=== PATIENT | female | born 1950 | race Caucasian/White ===

== ENCOUNTER → 2016-12-02 | Outpatient (CLI) | payer OTHER ==
[~2016-12-02] VITALS: Ht 167.6 cm; Wt 68.8 kg
[~2016-12-02] MED LIST: BACLOFEN PO; BUTRANS1 EAC2 TD; BUTRANS1 EAC3 TD; BUTRANS1 EACH TD; CELEBREX 200 M200 MG PO; CLONAZEPAM 0.50.5 M1 PO; CYMBALTA20 MG PO; CYMBALTA30 MG PO; CYMBALTA60 MG PO; DESYREL50 MG PO; ESTRADIOL-NORE1 EAC1 PO; FENTANYL PA12 MCG/HR TD; MENEST PO; MOBIC15 MG PO; MS CONTIN15 MG PO; NAPROSYN500 MG PO; NEURONTIN 300300 M1 PO; NEURONTIN600 MG PO; OXYTROL3.9 MG/PAT TRANSDERM; PROVERA2.5 MG PO; TRAMADOL 50 MG50 MG PO; ZANAFLEX4 M1 PO; [UNRECOGNIZED DRUG - OTHER]
--- NOTE | ~2016-12-02 | HPC ---
[facility] [place] [address] PAIN MANAGEMENT CONSULTATION Name: MORGAN OLIVER Room #: REG [facility] M..#: [id number] Admission: 12/02/16 Attend Phys: Jason Mix DO Discharge: Date of : 48 Report #: [id number] THIS REPORT FOR: //name// CC: Flakita Mix The patient is a 66-year-old female typically treated for myofascial pain requiring complex medication management. Last seen in the pain clinic 05/12/2016. At that time, continued the patient on Cymbalta through her general assembler physician and I had continued her on tramadol 50 mg 2-3 times a day, baclofen one-half to one tablet 3 times a day and gabapentin 600 mg 2 tablets 3 times a day along with Meloxicam 15 mg 1 a day. The patient returns to pain clinic today. Noting pain is primarily in the right hip and leg, now however, is a little different radiating down into the foot. She notes chronic bilateral hip pain, is helped with current medication, rates the pain at 5 on a 0-10 visual analog scale, pain is exacerbated with walking and exercise. She has stopped working due to hip pain. 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 PHYSICAL EXAMINATION: Shows 66-year-old female, BMI is 24.5 kilograms per meter squared. Blood pressure 142/79, pulse 67, respirations 16. Alert and oriented to person, place and time, judged to be a reasonable historian. Rises from chair using armrest, modestly antalgic gait. Patellar reflex is diminished on the right 1/4, 2/4 on the left, moderately positive straight leg raise on the right at 30 degrees. Right hip flexion and lower extremity extension strength is diminished about 4/5 versus 5/5. Diffuse axial back pain. No discrete trigger points are noted. We reviewed the fact that opiate medications are being used to provide analgesia adequate to support activities of daily living, not attempting to achieve a specific pain score on the 0-10 Visual Analog Scale. The current opiate medications are providing sufficient analgesia to allow the patient to participate in activities of daily living. The patient is not exhibiting any aberrant behavior suggestive of drug diversion. The patient is not having any adverse reactions to medications. The patient is not suffering from daytime somnolence or mental acuity changes. The patient is managing opiate-induced constipation with appropriate nmyr-dmt-pjnuusq agents and dietary considerations. The patient was counseled on concern for caution with operating a motor vehicle while using opiate medications. A physical exam was performed and the patient's functional status was evaluated. All patients with back pain were advised against the bed rest greater than 4 days and were advised to return to normal activities. Pain score assessment was noted and the treatment plan was reviewed with the patient. All current medications, both prescribed and OTC were reviewed and reconciled on the electronic medical record. Tobacco screening was accomplished and smoking [address] [address] PAIN MANAGEMENT CONSULTATION Name: MORGAN OLIVER Room #: REG [facility]EN Cho#: [id number] Admission: 12/02/16 Attend Phys: Jason Mix DO Discharge: Date of : 48 Report #: [id number] cessation was advised when indicated. BMI was noted and diet/exercise modification was recommended for all patients following outside normal parameters. I reviewed with the patient today their responsibilities to safeguard prescription medications, reviewed their responsibility to utilize medications only as prescribed by the physician. They are to seek and receive pain medications only from 1 physician group ( [facility]). They are to use 1 pharmacy and keep the clinic informed if they change pharmacies. Their responsibilities include making followup visits in a timely fashion and to avoid abrupt discontinuation of medication usage. Their responsibilities further include bringing their medications (bottles from the pharmacy with residual pills) to the visit for possible confirmation of pill counts and the patient understands it is their responsibility to submit to random drug screens to ensure both that the medications prescribed are present, and that no other controlled substances are present. All prescriptions provided today were generated electronically. ASSESSMENT: 1. Myofascial pain requiring complex medication management, stable on baseline medications including Meloxicam 15 mg daily, gabapentin 600 mg 2 tablets 3 times a day, baclofen 10 mg half to one tablet 3 times a day and tramadol 50 mg 1 tablet 2-3 times a day, we will increase to 3 or 4 times a day, limit 100 tablets for 30 days. 2. Acute exacerbation of lumbar radicular symptoms with right radicular pain, positive neural tensioning having failed conservative therapy including nonsteroidal anti-inflammatory medications and range of motion and stretching, physical therapy. RECOMMENDATION: We will seek authorization for lumbar epidural injection at L4-L5 at next visit. <ELECTRONICALLY SIGNED> By: Jason Mix DO 12/05/16 0917 1511 1920 Jason Mix DO /nt
[2016-12-02 11:12] VITALS: BP 142/79
== END ==
LOC: PAIN 07:05
DX: M79.1 Myalgia (principal); F17.210 Nicotine dependence, cigarettes, uncomplicated

== ENCOUNTER → 2017-04-03 | Outpatient (CLI) | payer OTHER ==
[~2017-04-03] VITALS: Ht 167.6 cm; Wt 70.2 kg
--- NOTE | ~2017-04-03 | HPC ---
[facility] [place] [address] PAIN MANAGEMENT CONSULTATION Name: MORGAN OLIVER Room #: REG Chava Cho#: [id number] Admission: 04/03/17 Attend Phys: Jason Mix DO Discharge: Date of : 48 Report #: [id number] THIS REPORT FOR: //name// CC: Flakita Mix HISTORY OF PRESENT ILLNESS: The patient is a 66-year-old female last seen in the pain clinic in November of this year, treated for myofascial pain requiring complex medication management; has a component of axial back pain. The patient was continued on her baseline medication including baclofen 10 mg half in the morning, half at noon, 1 at night; gabapentin 600 mg 2 tablets t.i.d.; tramadol 50 mg for breakthrough pain; Naprosyn 500 mg b.i.d. The patient returns to pain clinic today noting medications provide sufficient analgesia to participate in activities of daily living. Pain is primarily back radiating in the right leg. She rates it 9-10 on a bad day, though she states she does everything she "needs to do." She simply limits her activity in which she "wants" to do given that working through the activities of the day with chronic pain sometimes somewhat wears her out. PHYSICAL EXAMINATION: Shows 66-year-old female, BMI is 25 kilograms per meter squared. Vital signs stable as noted in the EMR. Rises from chair easily. Gait is tandem. Diffuse tenderness across the low back. Right leg shows slight decreased hip flexion strength, though otherwise strength is generally symmetric. We reviewed the fact that opiate medications are being used to provide analgesia adequate to support activities of daily living, not attempting to achieve a specific pain score on the 0-10 Visual Analog Scale. The current opiate medications are providing sufficient analgesia to allow the patient to participate in activities of daily living. The patient is not exhibiting any aberrant behavior suggestive of drug diversion. The patient is not having any adverse reactions to medications. The patient is not suffering from daytime somnolence or mental acuity changes. The patient is managing opiate-induced constipation with appropriate abvu-czc-pilnngc agents and dietary considerations. The patient was counseled on concern for caution with operating a motor vehicle while using opiate medications. A physical exam was performed and the patient's functional status was evaluated. All patients with back pain were advised against the bed rest greater than 4 days and were advised to return to normal activities. Pain score assessment was noted and the treatment plan was reviewed with the patient. All current medications, both prescribed and OTC were reviewed and reconciled on the electronic medical record. Tobacco screening was accomplished and smoking cessation was advised when indicated. BMI was noted and diet/exercise modification was recommended for all patients following outside normal parameters. [address] [address] PAIN MANAGEMENT CONSULTATION Name: MORGAN OLIVER Viviana Room #: REG [facility] Marquis#: [id number] Admission: 04/03/17 Attend Phys: Jason Mix DO Discharge: Date of : 46 Report #: [id number] I reviewed with the patient today their responsibilities to safeguard prescription medications, reviewed their responsibility to utilize medications only as prescribed by the physician. They are to seek and receive pain medications only from 1 physician group ( [facility]). They are to use 1 pharmacy and keep the clinic informed if they change pharmacies. Their responsibilities include making followup visits in a timely fashion and to avoid abrupt discontinuation of medication usage. Their responsibilities further include bringing their medications (bottles from the pharmacy with residual pills) to the visit for possible confirmation of pill counts and the patient understands it is their responsibility to submit to random drug screens to ensure both that the medications prescribed are present, and that no other controlled substances are present. All prescriptions provided today were generated electronically. ASSESSMENT: Myofascial pain requiring complex medication management and axial back pain. RECOMMENDATIONS: Renew baseline medications unchanged, gabapentin 600 mg 2 tablets t.i.d.; baclofen 10 mg half a tablet in the morning, half at noon and 1 at night and Naprosyn 500 mg b.i.d. No problems with GI issues, renal issue or cardiac issues. Continue tramadol 50 mg p.r.n. breakthrough pain, 100 tablets for 30 days. Follow up in 3 months for reevaluation. <ELECTRONICALLY SIGNED> By: Jason Mix DO 04/05/17 0758 1611 2310 Jason Mix DO /nt
[2017-04-03 13:46] VITALS: BP 119/72
== END | disposition home or self-care (01) ==
LOC: PAIN 06:53
DX: M54.16 Radiculopathy, lumbar region (principal); M79.1 Myalgia; F17.200 Nicotine dependence, unspecified, uncomplicated

== ENCOUNTER → 2017-09-07 | Outpatient (CLI) | payer OTHER ==
[~2017-09-07] VITALS: Ht 167.6 cm; Wt 69.1 kg
--- NOTE | ~2017-09-07 | HPC ---
[facility] [address] [address] [place] [address] PAIN MANAGEMENT CONSULTATION Name: MORGAN OLIVER [id number] Admission: 09/07/17 Attend Phys: Jason Mix DO Discharge: Date of : 46 Report #: [id number] THIS REPORT FOR: //name// CC: Flakita Mix DATE OF SERVICE: 09/08/2017 DATE OF SERVICE: 09/08/2017 HISTORY OF PRESENT ILLNESS: The patient is a 67-year-old female, long noted in the pain clinic, being treated for myofascial pain requiring high risk complex medication management. She was continued on baclofen 10 mg half in the morning, half at noon, 1 at night, gabapentin 600 mg 2 tablets 3 times a day, tramadol for breakthrough pain and Naprosyn 500 mg b.i.d. She returns to pain clinic today with complaints of pain increasing across the back. She is wearing a back brace that she got through Medicare. She recently moved from an apartment to a house. With increasing activity, pain has been problematic primarily across the belt line. She rates the pain as "12" on a 0-10 VAS. PHYSICAL EXAMINATION: Shows 67-year-old female, BMI is 24.6 kilograms per meter squared. Vital signs stable as noted in the EMR. She continues to smoke and was counseled regarding same. Rises from chair using armrest. Gait is tandem. Diffuse tenderness across the low back. No discrete trigger points are noted. We reviewed the fact that opiate medications are being used to provide analgesia adequate to support activities of daily living, not attempting to achieve a specific pain score on the 0-10 Visual Analog Scale. The current opiate medications are providing sufficient analgesia to allow the patient to participate in activities of daily living. The patient is not exhibiting any aberrant behavior suggestive of drug diversion. The patient is not having any adverse reactions to medications. The patient is not suffering from daytime somnolence or mental acuity changes. The patient is managing opiate-induced constipation with appropriate jtzb-izp-bmtkgkl agents and dietary considerations. The patient was counseled on concern for caution with operating a motor vehicle while using opiate medications. A physical exam was performed and the patient's functional status was evaluated. All patients with back pain were advised against the bed rest greater than 4 days and were advised to return to normal activities. Pain score assessment was noted and the treatment plan was reviewed with the patient. All current medications, both prescribed and OTC were reviewed and reconciled on the electronic medical record. Tobacco screening was accomplished and smoking cessation was advised when indicated. BMI was noted and diet/exercise [address] [address] PAIN MANAGEMENT CONSULTATION Name: MORGAN OLIVER Viviana Room #: REG [facility] Marquis#: [id number] Admission: 09/07/17 Attend Phys: Jason Mix DO Discharge: Date of : 46 Report #: [id number] modification was recommended for all patients following outside normal parameters. I reviewed with the patient today their responsibilities to safeguard prescription medications, reviewed their responsibility to utilize medications only as prescribed by the physician. They are to seek and receive pain medications only from 1 physician group ([facility]). They are to use 1 pharmacy and keep the clinic informed if they change pharmacies. Their responsibilities include making followup visits in a timely fashion and to avoid abrupt discontinuation of medication usage. Their responsibilities further include bringing their medications (bottles from the pharmacy with residual pills) to the visit for possible confirmation of pill counts and the patient understands it is their responsibility to submit to random drug screens to ensure both that the medications prescribed are present, and that no other controlled substances are present. All prescriptions provided today were generated electronically. ASSESSMENT: Myofascial pain requiring high risk complex medication management. RECOMMENDATIONS: 1. Smoking cessation. 2. Continue range of motion core therapy. We talked about problems of wearing the Velcro abdominal binder belt. While it does feel good to wear, it may promote weakening of the core muscles. We strongly recommend core stabilization exercises. Suggested, if she is going to wear the abdominal binder, she wear it only for short periods of time, perhaps when doing more aggressive lifting. Otherwise, continue current medication including gabapentin 600 mg 2 tablets 3 times a day, baclofen 10 mg half in the morning, half at noon, 1 at night. She does not require these prescriptions. We did renew tramadol 50 mg 1 tablet up to 4 times a day, #120 tablets with 3 refills. Naproxen sodium 500 mg b.i.d. Discharged in good and stable condition. Follow up in 3 months or earlier if needed. <ELECTRONICALLY SIGNED> By: Jason Mix DO 09/08/17 0926 9 0804 Jason Mix DO /nt
[2017-09-07 14:27] VITALS: BP 143/83
== END | disposition home or self-care (01) ==
LOC: PAIN 07-27 07:08
DX: E11.42 Type 2 diabetes mellitus with diabetic polyneuropathy (principal); G89.29 Other chronic pain; F41.9 Anxiety disorder, unspecified; Z79.4 Long term (current) use of insulin; E66.01 Morbid (severe) obesity due to excess calories; I10 Essential (primary) hypertension; K21.9 Gastro-esophageal reflux disease without esophagitis; Z98.890 Other specified postprocedural states; F17.210 Nicotine dependence, cigarettes, uncomplicated

== ENCOUNTER → 2018-01-25 | Outpatient (CLI) | payer OTHER ==
[~2018-01-25] VITALS: Ht 167.6 cm; Wt 68.9 kg
[~2018-01-25] MED LIST changes: +NORFLEX100 MG PO; +WELLBUTRIN XL300 MG PO
--- NOTE | ~2018-01-25 | HPC ---
[facility] [address] PAIN MANAGEMENT CONSULTATION Name: MORGAN OLIVER Room #: REG [facility] Cho#: [id number] Admission: 01/25/18 Attend Phys: Jason Mix DO Discharge: Date of : 46 Report #: [id number] THIS REPORT FOR: //name// CC: Flakita Mix The patient is a 67-year-old female typically treated for myofascial pain requiring complex medication management. She had been relatively stable on gabapentin 600 mg 2 tablets 3 times a day, tramadol 1 tablet 4 times a day, though she is typically averaging about 3.2 tablets, her prescription for 120 tablets with 3 refills has lasted approximately 5 months. The patient returns to pain clinic today noting that her pain became quite problematic. She was seen in the ER, 10/15/2017 for acute back spasm radiating into the breast. It was determined to be noncardiac chest pain. She was started on some Norflex at that time. She returns to pain clinic today. She notes pain is 7-8 on VAS. Pain is per the patient, "all over." She complains of pain in her neck, back, arms, shoulders, hips and legs. States that she sought animal care supervisor with no help. She states that the acute pain for which she was seen in the ER, 10/15/2017 did resolve somewhat over a week. States her current chronic pain remains problematic with activity. 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 She states she is unable to work secondary to pain. Physical exam shows 67-year-old female appearing somewhat younger than stated age. BMI is 24.5 kilograms per meter squared. Blood pressure is 139/65, pulse is 70, respirations are 20. Subjective pain score 7-8 on VAS. Cranial nerves 2-12 are grossly intact. Pupils are equal, react to light and accommodation. Extraocular muscles are intact. She rises from the chair with minimal use of the armrest. Upper extremity strength is symmetric. Range of motion is good. Diffuse tenderness throughout trapezius, latissimus dorsi, thoracic, lumbar paravertebral muscles. Lumbar flexion; however, is good to 90+ degrees. Lower extremity strength is symmetric. Straight leg raising negative. ASSESSMENT: Chronic axial back pain, myofascial pain requiring complex medication management. RECOMMENDATIONS: Continue Cymbalta 90 mg a.m., gabapentin 600 mg 2 tablets t.i.d., baclofen 10 mg t.i.d. for spasm, Naprosyn 500 mg b.i.d. and tramadol 50 mg 1 tablet 3-4 times a day, limit 100 tablets with 4 refills. We reviewed the fact that opiate medications are being used to provide analgesia adequate to support activities of daily living, not attempting to achieve a [address] [address] PAIN MANAGEMENT CONSULTATION Name: MORGAN OLIVER Room #: REG [facility].#: [id number] Admission: 01/25/18 Attend Phys: Jason Mix DO Discharge: Date of : 46 Report #: [id number] specific pain score on the 0-10 Visual Analog Scale. The current opiate medications are providing sufficient analgesia to allow the patient to participate in activities of daily living. The patient is not exhibiting any aberrant behavior suggestive of drug diversion. The patient is not having any adverse reactions to medications. The patient is not suffering from daytime somnolence or mental acuity changes. The patient is managing opiate-induced constipation with appropriate nxup-rgg-kyljzfg agents and dietary considerations. The patient was counseled on concern for caution with operating a motor vehicle while using opiate medications. A physical exam was performed and the patient's functional status was evaluated. All patients with back pain were advised against the bed rest greater than 4 days and were advised to return to normal activities. Pain score assessment was noted and the treatment plan was reviewed with the patient. All current medications, both prescribed and OTC were reviewed and reconciled on the electronic medical record. Tobacco screening was accomplished and smoking cessation was advised when indicated. BMI was noted and diet/exercise modification was recommended for all patients following outside normal parameters. I reviewed with the patient today their responsibilities to safeguard prescription medications, reviewed their responsibility to utilize medications only as prescribed by the physician. They are to seek and receive pain medications only from 1 physician group ( [facility]). They are to use 1 pharmacy and keep the clinic informed if they change pharmacies. Their responsibilities include making followup visits in a timely fashion and to avoid abrupt discontinuation of medication usage. Their responsibilities further include bringing their medications (bottles from the pharmacy with residual pills) to the visit for possible confirmation of pill counts and the patient understands it is their responsibility to submit to random drug screens to ensure both that the medications prescribed are present, and that no other controlled substances are present. All prescriptions provided today were generated electronically. We did review opiate risk assessment tool today, she scores high at 8. Functional assessment tool score shows impact at 46/70. We counseled the patient regarding nicotine use and its association with axial back pain. <ELECTRONICALLY SIGNED> By: Jason Mix DO 01/26/18 0704 [id number] 1838 Jason Mix DO /nt
[2018-01-25 13:28] VITALS: BP 139/65
== END ==
LOC: PAIN 06:55
DX: M79.1 Myalgia (principal); M54.9 Dorsalgia, unspecified; Z79.899 Other long term (current) drug therapy

== ENCOUNTER → 2018-07-11 | Outpatient (CLI) | payer OTHER ==
[~2018-07-11] VITALS: Ht 167.6 cm; Wt 70.4 kg
--- NOTE | ~2018-07-11 | HPC ---
[facility] [address] [address] PAIN MANAGEMENT CONSULTATION Name: MORGAN OLIVER Room #: REG EREN Marquis#: [id number] Admission: 07/11/18 Attend Phys: Phil Hollins MD Discharge: Date of : 46 Report #: [id number] THIS REPORT FOR: //name// CC: Flakita Hollins DATE OF SERVICE: 07/11/2018 CHIEF COMPLAINT: Pain radiating down into my left arm. HISTORY OF PRESENT ILLNESS: The patient is a 67-year-old female who has been seen in the Pain Clinic by Dr. Jason Mix. The patient has returned today with complaint of pain and discomfort involving her left arm. She has pain radiating down her shoulder into the left arm with numbness and tingling. She has a history of lumbar radicular pain. She has had some problems with her shoulders and neck in the past. She notes that her pain in the left arm is more problematic. It is exacerbated by turning her head. She notes that the pain worsens when she over use it. Working in the yard causes worsening of her pain and discomfort. Use of medications and heat have been sometimes helpful. She has returned today for a cervical epidural steroid injection. Her MRI showed a broad-based disk osteophyte bulge eccentric to the left with slight flattening of the left ventral cord surface. There was severe bilateral foraminal stenosis at this level. The patient would like to proceed with a cervical epidural steroid injection. She has had lumbar epidural steroid injections in the past without problems. ALLERGIES: IV IODINE. CURRENT MEDICATIONS: Gabapentin 600 mg 2 tablets p.o. t.i.d., tramadol 50 mg t.i.d./q.i.d., baclofen 10 mg t.i.d., Naprosyn 500 mg b.i.d., Cymbalta 30 mg, estradiol, trazodone 50 mg at bedtime, Proventil 2.5 mg, clonazepam 0.15 mg at bedtime. PAIN CLINIC ASSESSMENT: 1. The patient has osteoarthritic changes in her hip. She has some pain and discomfort in her left arm. 2. Height 5 feet 6 inches, weight 155 pounds, BMI is 25. 3. Vital Signs: Blood pressure 134/74, pulse 67, respiratory rate 16, room air saturation 100%. 4. Pain intensity 10. 5. Fall risk. The patient has not fallen in the last 3 weeks, but does exhibit some feeling of dizziness. 6. Blood thinner. The patient is not on a blood thinning medication. 7. History of hypertension. The patient has not been treated for hypertension. 8. Opioids. The patient is treated with tramadol. 9. Risk assessment tool, high risk greater than [address]. [place] [address] PAIN MANAGEMENT CONSULTATION Name: MORGAN OLIVER Room #: REG EREN Marquis#: [id number] Admission: 07/11/18 Attend Phys: Phil Hollins MD Discharge: Date of : 46 Report #: [id number] 10. Functional assessment tool 46/70. 11. Recreational drug use. The patient denies use of recreational drugs. 12. Tobacco: The patient is a current tobacco user. 13. Alcohol: The patient does admit to use of alcoholic beverages on occasion. PHYSICAL EXAMINATION: GENERAL: The patient is a well-developed, well-nourished white female. Appears her stated age. She is alert and oriented x 3. Her affect is appropriate. HEENT: Normocephalic, atraumatic. Extraocular eye muscles intact. Sclerae nonicteric. Mucous membranes are moist. NECK: With good range of motion. The patient has pain and discomfort which is radiating down the left shoulder involving the left arm. HEART: Regular rate. S1, S2. LUNGS: Clear to auscultation. MUSCULOSKELETAL: Without significant scoliosis, kyphosis or lordosis. Lower extremity muscle strength judged to be 5/5 for the major muscle groups in the lower extremity. IMPRESSION: 1. Cervical radiculopathy today with pain radiating down into the left arm. 2. Emotional problems. 3. Joint disease/arthritis. RECOMMENDATIONS: We discussed treatment options with the patient. They include cervical epidural steroid injection. Risks and benefits of the procedure, which could include infection, increased muscle soreness, headache, bleeding, worsening of pain, no improvement in pain, paralysis were reviewed. The patient elects to proceed. PROCEDURE NOTE: The patient was placed in the prone position. Fluoroscopy was used to identify the C7-T1 interspace. This area had been sterilely prepped with Betadine and infiltrated with 0.25% bupivacaine. A 17-gauge Tuohy using a left paramedian approach was instituted. A total of 120 mg of triamcinolone was injected. The patient tolerated the procedure well. There were no complications. She remained in the Pain Clinic for an appropriate amount of time. She will follow up in the future as needed. We would like to thank you for letting us participate in her care. We hope she continues to improve. By: [id number] Phil Hollins MD /nt
[2018-07-11 12:47] VITALS: BP 134/74
== END | disposition home or self-care (01) ==
LOC: PAIN 07:55
DX: M54.12 Radiculopathy, cervical region (principal); G89.29 Other chronic pain; M19.90 Unspecified osteoarthritis, unspecified site; F98.9 Unspecified behavioral and emotional disorders with onset usually occurring in childhood and adolescence; F17.210 Nicotine dependence, cigarettes, uncomplicated; Z91.041 Radiographic dye allergy status; Z79.899 Other long term (current) drug therapy; Z98.890 Other specified postprocedural states

== ENCOUNTER → 2018-10-17 | Outpatient (CLI) | payer OTHER ==
[~2018-10-17] VITALS: Ht 167.6 cm; Wt 71.5 kg
[~2018-10-17] MED LIST changes: +HYDROCODON-ACE1 EAC7 PO; +ZANAFLEX2 MG PO
[2018-10-17 11:29] VITALS: BP 148/123
== END ==
LOC: PAIN 05:50
DX: M54.5 Low back pain (principal); M25.551 Pain in right hip; M54.2 Cervicalgia; G89.29 Other chronic pain; M25.511 Pain in right shoulder; M25.512 Pain in left shoulder; M79.605 Pain in left leg; Z79.899 Other long term (current) drug therapy

== ENCOUNTER → 2018-12-03 | Outpatient (CLI) | payer OTHER ==
[~2018-12-03] VITALS: Ht 167.6 cm; Wt 70.7 kg
[2018-12-03 13:12] VITALS: BP 123/72
--- NOTE | 2018-12-03 13:30 | NUR ---
Pain Clinic Assessment: 1. History of Osteoarthritis: HIP History of Rheumatoid Arthritis: Not Applicable 2. Height: 5 ft. 6 in. 167.6 cm. Weight: 155.8 lb. oz. 70.670 kg. Patient's BMI: 25.2 3. Vital Signs: BP: 123/72 Pulse: 75 Resp: 14 Temp: 02 Sat: 100 ECG Mon: 4. Pain Intensity: 6 5. Fall Risk: Dizziness: N Needs help standing or walking: N Fallen in the last 3 months: N Fall risk comments: 6. Patient on Blood Thinner: None 7. History of Hypertension: N 8. Opioid Therapy greater than 6 weeks: Y Opiate Contract Signed: 01/25/18 9. Risk Assessment Tool Provided: HIGH RISK >8 10. Functional Assessment Tool: 11. Recreational Drug Use: Past greater than 3 mos Drug Type: Tobacco Use: Current Every Day Smoker Tobacco Type: Cigarettes Amount or Packs/day: 0.5 How Many Years: 50 Alcohol Use: Yes Frequency: Daily Quant: WINE WITH DINER
--- NOTE | 2018-12-04 08:07 | HPC ---
[facility] [address] [address] PAIN MANAGEMENT CONSULTATION Name: MORGAN OLIVER Room #: REG EREN Cho#: [id number] Admission: 12/03/18 Attend Phys: Betzy Diaz Discharge: Date of : 46 Report #: [id number] THIS REPORT FOR: //name// CC: Flakita Diaz DATE OF SERVICE: 12/03/2018 CHIEF COMPLAINT: Right shoulder pain and fibromyalgia. HISTORY OF PRESENT ILLNESS: This is a 68-year-old female who has been followed in the pain clinic for her chronic pain. She returns today for refill of her hydrocodone that she was supposed to be on short term for right shoulder pain. She had tripped and fell in August, had x-rays at , but has not seen any orthopedic doctor. The patient tells me that she has been taking the hydrocodone as well as her tramadol, still having significant pain in her right shoulder, complains of 6/10 today, worse with using her right arm, turning her head since she also has neck pain, better with her medications and heat. She tells me that she is needing sometimes to take 2 additional tramadol and needs refills of her medications today. ALLERGIES: CONTRAST DYE. CURRENT MEDICATIONS: Hydrocodone 5/325 up to 2 times a day, tizanidine 2 mg every 8 hours, tramadol 50 mg 1 tablet 4 times a day, gabapentin 600 mg 2 tablets 3 times a day, baclofen 10 mg 3 times a day, bupropion 300 mg daily, Cymbalta 90 mg daily, estradiol daily, Desyrel 50 mg at bedtime, Provera 2.5 mg daily, clonazepam 0.5 mg at bedtime. PQRS: 1. She has had osteoarthritic changes in her hips and her neck. She is not being treated for rheumatoid arthritis. 2. Height is 5 feet 6 inches, weight is 155, BMI is 25.2. 3. Vital signs: Blood pressure 123/72, pulse is 75, respirations 14, oxygen sat is 100. 4. Pain score is 6. 5. Denies dizziness. Does not need help walking or standing, not fallen in the last 3 months. 6. Denies blood thinners, does not take any antihypertensive medicines. 7. Opioid therapy is greater than 6 weeks, therefore an opioid signed contract is on the chart. 8. Risk assessment tool is high. Her functional assessment is 46/70. 9. Past recreational drug use. She does smoke cigarettes every day and she does drink alcohol daily. We did check the prescription monitoring system. The patient has filled medications most recently within the past month of her hydrocodone, is not due for the tramadol today. [address] [address] PAIN MANAGEMENT CONSULTATION Name: MORGAN OLIVER Viviana Room #: NATALIE Cho#: [id number] Admission: 12/03/18 Attend Phys: Betzy Diaz Discharge: Date of : 46 Report #: [id number] PHYSICAL EXAMINATION: GENERAL: Well-developed, well-nourished white female, appears younger than her stated age. She is alert and orientated. Her affect is appropriate. HEENT: Normocephalic. Extraocular eye muscles are intact. Mucous membranes are moist. NECK: Good range of motion. Does complain of some severe discomfort in her left sternocleidomastoid muscle that radiates into her left shoulder. MUSCULOSKELETAL: Without significant scoliosis, kyphosis or lordosis. The patient has significant pain on abduction of her right shoulder, unable to raise her arm more than 30 degrees of her right arm. Lower extremity strength judged to be 5/5 in all major muscle groups. ASSESSMENT: 1. Symptomatic lumbar radiculopathy. 2. Emotional problems. 3. Joint disease, arthritis. 4. Right shoulder pain, status post recent fall. We reviewed the fact that opiate medications are being used to provide analgesia adequate to support activities of daily living, not attempting to achieve a specific pain score on the 0-10 Visual Analog Scale. The current opiate medications are providing sufficient analgesia to allow the patient to participate in activities of daily living. The patient is not exhibiting any aberrant behavior suggestive of drug diversion. The patient is not having any adverse reactions to medications. The patient is not suffering from daytime somnolence or mental acuity changes. The patient is managing opiate-induced constipation with appropriate lpon-kod-uqolhzl agents and dietary considerations. The patient was counseled on concern for caution with operating a motor vehicle while using opiate medications. A physical exam was performed and the patient's functional status was evaluated. All patients with back pain were advised against the bed rest greater than 4 days and were advised to return to normal activities. Pain score assessment was noted and the treatment plan was reviewed with the patient. All current medications, both prescribed and OTC were reviewed and reconciled on the electronic medical record. Tobacco screening was accomplished and smoking cessation was advised when indicated. BMI was noted and diet/exercise modification was recommended for all patients following outside normal parameters. I reviewed with the patient today their responsibilities to safeguard prescription medications, reviewed their responsibility to utilize medications only as prescribed by the physician. They are to seek and receive pain medications only from 1 physician group ([facility]). They are to use 1 pharmacy and keep the clinic informed if they change pharmacies. Their [address] [address] PAIN MANAGEMENT CONSULTATION Name: MORGAN OLIVER Room #: REG [facility]#: [id number] Admission: 12/03/18 Attend Phys: Betzy Diaz Discharge: Date of : 46 Report #: [id number] responsibilities include making followup visits in a timely fashion and to avoid abrupt discontinuation of medication usage. Their responsibilities further include bringing their medications (bottles from the pharmacy with residual pills) to the visit for possible confirmation of pill counts and the patient understands it is their responsibility to submit to random drug screens to ensure both that the medications prescribed are present, and that no other controlled substances are present. All prescriptions provided today were generated electronically. PLAN: 1. We discussed treatment options today, The patient has had this ongoing shoulder pain since August. At the time of her fall, she did go to and had a regular x-ray, but has not followed up with orthopedic. Since the patient has limited mobility in that arm and it continues to get worse requiring her to take hydrocodone, I instructed her that she needs to see an orthopedic doctor. The patient has been told to go to and hop picker her x-ray results and picture to take it with her to [facility] which we will send a referral to. If they need us to order any further x-rays, we will order those prior to her appointment, but they may decide to do that when they see her. The patient is agreeable with this plan of care. She says that she needs to have something looked at for her shoulder since it continues to get worse. 2. I reminded the patient that this hydrocodone was supposed to be a very limited short time medications and she is already on tramadol on a daily basis. This is our third script. I informed her that we will not be writing this on a continued basis, so she does need to have her shoulder checked out. The patient is agreeable and understanding. One script given today for hydrocodone 5/325, #60 with no refills. 3. The patient also complains of some left neck pain. She does have some tightness present in her muscles there. I did inform her that Dr. Hollins could do some trigger point injections, but we will hold off on that until she does see the orthopedic doctor, so she has no steroids in her system in case they need to do surgery on her shoulder. The patient is agreeable with this plan of care. 4. She is not taking any anti-inflammatory medicines on our list and tells us that she takes no dvdw-msc-sjalcmh medicines. Naproxen 500 mg 1 tablet twice a day with food for 60 with 2 additional refills was given to the patient for her general aches and pains and her right shoulder pain. 5. The patient will be seen in followup in 2 months for her scheduled regular medications. The patient seen in collaboration today with Dr. William Lima. 6. We did a urine drug screen since there was not one on the chart. <ELECTRONICALLY SIGNED> By: Betzy Diaz 12/04/18 [id number] Betzy Diaz /nt
== END ==
LOC: PAIN 07:14
DX: M54.16 Radiculopathy, lumbar region (principal); M19.90 Unspecified osteoarthritis, unspecified site; M25.511 Pain in right shoulder; F98.9 Unspecified behavioral and emotional disorders with onset usually occurring in childhood and adolescence; W19.XXXA Unspecified fall, initial encounter; Y93.89 Activity, other specified; Y92.89 Other specified places as the place of occurrence of the external cause; Y99.8 Other external cause status